=== PATIENT | male | born 1990 | race Two or more races ===

== ENCOUNTER 2020-11-20 10:58 | Emergency (ER) | payer SELFPAY ==
[~2020-11-20] VITALS: Ht 172.7 cm; Wt 81.6 kg
[2020-11-20 11:08] VITALS: BP 127/98
[2020-11-20 11:09] VITALS: BP 127/98
--- NOTE | 2020-11-20 11:10 | NUR ---
ED Nurse Note: pt thought he was checking into a clinic, would not like to be treated in a hospital, pt is concerned about hospital bill. left before triage could be completed. left without being seen by
== END 2020-11-20 11:10 | disposition left against medical advice (07) ==
LOC: EMR 11:10
DX: R10.9 Unspecified abdominal pain (principal); Z53.21 Procedure and treatment not carried out due to patient leaving prior to being seen by health care provider